=== PATIENT | male | born 1925 | race Caucasian/White ===

== ENCOUNTER 2017-03-14 12:13 | Outpatient (CLI) | payer MEDICARE, BC ==
[2017-03-14 13:57] LABS: Hematocrit 38.6 % (42.0-52.0); Mean Platelet Volume 7.8 fL (7.4-10.4); Red Blood Cell (RBC) Count 3.92 mill/uL (4.70-6.10)
[2017-03-14 14:14] LABS: Anion Gap 12 mmol/L (10-20); BUN (Urea Nitrogen) 25 mg/dL (8.4-25.7); Calc. Creatinine Clearance 0 mL/min (70-130); Calcium 9.7 mg/dL (7.8-10.44); Carbon Dioxide 27 mmol/L (23-31); Chloride 104 mmol/L (98-107); Estimated GFR-MDRD 82
--- NOTE | 2017-03-14 14:38 | RAD ---
CHEST PA AND LATERAL: History: 89-year-old male for intraoperative evaluation. FINDINGS: There is rotation to the left. There is some old granuloma calcification changes as well as some old pleural calcification changes on the left. Heart size is within normal limits. Atherosclerosis of the aorta with ectasia. IMPRESSION: Atherosclerosis of the aorta with ectasia. Old granulomatous disease. Some left sided pleural calcifi cations. No pneumonia, edema, or other acute intrathoracic disease. POS: [facility]
[2017-03-14 15:36] LABS: Bilirubin Negative (Negative); Blood, Urine Negative (Negative); Glucose, Urine (Dipstick) Negative (Negative); Ketone, Urine Negative (Negative); Nitrite Negative (Negative); Protein, Urine (Dipstick) Negative (Neg-Trace); Urobilinogen 0.2 mg/dL (0.2-1.0)
[2017-03-14 15:43] LABS: Bacteria/HPF None Seen HPF (None Seen); Hyaline Casts/LPF 0-3 HYALINE CAST LPF (0-3 Hyaline); RBC/HPF 0-3 HPF (0-3); Squamous Epithelial None Seen HPF (0-3); WBC/HPF None Seen HPF (0-3)
--- NOTE | 2017-03-20 08:24 | EKG ---
Test Reason : Blood Pressure : / mmHG Vent. Rate : 065 BPM Atrial Rate : 065 BPM P-R Int : 194 ms QRS Dur : 106 ms QT Int : 386 ms P-R-T Axes : 040 -26 010 degrees QTc Int : 401 ms Normal sinus rhythm RSR' or QR pattern in V1 suggests right ventricular conduction delay Cannot rule out Anterior infarct , age undetermined Abnormal ECG When compared with ECG of 14-MAY-1992 11:07, RSR' pattern in V1 has replaced Non-specific intra-ventricular conduction delay Confirmed by Vlad CALZADA ([id number]) on 03/20/2017 8:24:49 AM Referred By: [facility] Confirmed By:Vlad CALZADA
== END 2017-03-14 12:14 | disposition home or self-care (01) ==
LOC: LABBT 12:13
PROVIDERS: ATTEND Orthopaedic Surgery Hand Surgery
DX: Z01.818 Encounter for other preprocedural examination (principal); G56.01 Carpal tunnel syndrome, right upper limb; I70.0 Atherosclerosis of aorta; I77.819 Aortic ectasia, unspecified site
CPT/HCPCS: 71020; 80048; 81001; 85027; 93005; 93010

== ENCOUNTER 2017-03-22 06:00 | Day surgery (SDC) | payer MEDICARE, BC ==
[2017-03-14 12:32] VITALS: BMI 30.4
[2017-03-22] MEDS ORDERED: Fentanyl 100 MCG/2 ML VIAL ONE (06:12)
[2017-03-22] MEDS ORDERED: Propofol 500 MG/50 ML VIAL ONE (06:12)
[2017-03-22] MEDS ORDERED: CEFAZOLIN/Water 2 GM/20 ML SYRINGE ONE (06:19)
[2017-03-22] MEDS ORDERED: Bacitracin Zinc Ointment 30 gm TUBE ONE (07:13)
[2017-03-22] MEDS ORDERED: Betamet Acet/Betamet Na Ph 30 MG/5 ML VIAL ONE (07:21)
[2017-03-22] MEDS ORDERED: Bupivacaine PF 0.5% 30 ML VIAL ONE (07:21)
--- NOTE | 2017-03-22 12:53 | OP ---
DATE OF PROCEDURE: 03/22/2017 PREOPERATIVE DIAGNOSIS: Right carpal tunnel syndrome. POSTOPERATIVE DIAGNOSIS: Right carpal tunnel syndrome. SURGEON: Daquan Brown M.D. FINDINGS: 1. Flattening of the median nerve over 2.5 cm area under the transcarpal ligament. Type 1 motor bra nch takeoff. Moderately stiff. 2. No tenosynovitis. PROCEDURE PERFORMED: 1. Carpal tunnel release. 2. Injection of drip technique Celestone 3 mL. ESTIMATED BLOOD LOSS: 5 mL. TOURNIQUET TIME: 16 minutes. COMPLICATIONS: None. INDICATIONS: The patient with marked atrophy, median nerve signs and symptoms indicative of stage II I Resendiz changes, failed conservative treatment. He has already had a contralateral release. DESCRIPTION OF PROCEDURE: Anesthesia was propofol with a total of 10 mL 0.5% Marcaine block given pr ior to incision. DESCRIPTION OF PROCEDURE: I did perform a timeout, identifying the right side, the patient had a blo ck given by the surgeon prior to prep and draping using 10 mL 0.5% Marcaine along the estimated surgi kristina incision line. Then, propofol was given the same time by Anesthesia with [place] Anest[employer]. We then prepped and draped, finished time out, and exsanguinated the limb. Tourniquet inflated to 25 0 mmHg pressure. The patient then had a limited incision 2.5 cm long beginning 5 mm distal to the volar wrist flexion crease going to Noel's cardinal line and into the medial lateral rotation in line with the ring fin rusty. This was carried through skin, subcutaneous tissue, identified the transcarpal ligament. Then with a [place] blade under direct visualization and retraction in the central portion and then from th ere distally using a combination B-blade scissors. We then turned our attention proximally where we elevated the subcutaneous skin which was thin so we had to protect it and was able to visualize a tig ht transcarpal ligament, but it was quite thin as we went proximally. The median nerve could be seen to be flattened by the transcarpal ligament, and stippling over 2 cm area and a 2.5 cm area flattene d. The motor branch was as stated. The patient then had 3 mL Celestone dripped into the wound, tourniquet deflated. Hemostasis obtained . Incision closed with interrupted 4-0 nylon in a mattress pattern. The patient then had a bulky dr essing applied and left the operating room without evidence of anesthetic or operative complications.
[2017-03-22] MEDS ORDERED: Lidocaine 1% PF 5 ML VIAL ONE (14:12)
[2017-03-22] MEDS ORDERED: Propofol 200 MG/20 ML VIAL ONE (14:12)
== END 2017-03-22 09:30 | disposition home or self-care (01) ==
LOC: SDC 06:00
PROVIDERS: ATTEND Orthopaedic Surgery Hand Surgery
PROC: 01N50ZZ Release Median Nerve, Open Approach (ICD-10-PCS; principal; 2017-03-22)
DX: G56.01 Carpal tunnel syndrome, right upper limb (principal); I10 Essential (primary) hypertension; G35 Multiple sclerosis; Z79.899 Other long term (current) drug therapy; Z79.82 Long term (current) use of aspirin; Z90.49 Acquired absence of other specified parts of digestive tract; Z96.643 Presence of artificial hip joint, bilateral; Z98.890 Other specified postprocedural states
CPT/HCPCS: J0702; J2001; J2704; J3010; S0020